=== PATIENT | male | born 1935 | race Caucasian/White ===

== ENCOUNTER 2017-01-30 07:21 | Day surgery (SDC) | payer OTHER, MEDICARE ==
[2017-01-26 11:22] VITALS: BMI 22.8
[2017-01-30] MEDS ORDERED: ACETAMINOPHEN 500 MG TABLET (FP) PO PRN (08:58)
[2017-01-30] MEDS ORDERED: BACITRACIN 3.5 GM OPTHALMIC OINT TUBE ONE (09:10)
[2017-01-30] MEDS ORDERED: TETRACAINE 0.5% OPHTH SOLN 2 ML BOTTLE ONE (09:10)
[2017-01-30] MEDS ORDERED: LIDOCAINE 1%/EPI 1:100000 (20 ML MULTI DOSE VIAL) ONE (09:11)
[2017-01-30] MEDS ORDERED: BUPIVACAINE HCL/PF 0.5% (5MG/ML) 10 ML VIAL ONE (09:11)
[2017-01-30] MEDS ORDERED: POVIDONE-IODINE 5% OPHTHALMIC PREP 30 ML SOLUTION ONE (09:11)
[2017-01-30] MEDS ORDERED: oxyCODONE HCL 5 MG TABLET PO PRN (11:05)
[2017-01-30] MEDS ORDERED: ONDANSETRON 4 MG/2 ML VIAL IVPUSH PRN (11:05)
[2017-01-30] MEDS ORDERED: LACTATED RINGERS SOLUTION 1,000 ML IV SCH (11:15)
--- NOTE | 2017-01-30 12:24 | OP ---
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 PROCEDURE: 1. Debridement. 2. Facial SLAP from the left preauricular region to the left lateral canthus and repair of defect. SURGEON: Cata Escobar MD ANESTHESIA: Local. COMPLICATIONS: None. ESTIMATED BLOOD LOSS: 5 mL. OPERATIVE REPORT: The patient is brought to the operating room and placed on the operating room table. Vital signs monitored by Anesthesia. Tetracaine was placed in both eyes. The wound was photographed. I subsequently marked for a rotational flap. Following this, 10 mL of 2% Xylocaine 1:100,000 epinephrine and 0.5% Marcaine were injected around the area of the defect and the entire left temporal, preauricular region, left lateral canthus, and cheek. Massage was applied for hemostasis and the following procedure was performed: After prepping and draping, inferior and lateral incisions were made in the cheek skin and wide undermining in the deep dermal plane was carried out to the preauricular region and in the cheek and in the lateral canthus. The elevated flap was then rotated into position over the defect after the defect had been trimmed. It was secured into position. The donor site was closed with 4-0 Prolene passed with 2 bolsters closing the superior apex of the donor site and below this the donor site was closed with 4-0 and 3-0 chromic and then with running 5-0 plain. The rotated flap was secured into the appropriate corners with buried 5-0 chromic suture tailored to fit into the defect as needed, and was meticulously closed with a deep layer of 5-0 chromic opposing the new flap on all 3 of its sides and then closing the skin layer with running and interrupted 5-0 chromic suture meticulously. Antibiotic irrigation was used throughout the case. Bacitracin ointment was placed on all the sutures at the end of the case. The patient was taken to the recovery room in stable condition. CATA ESCOBAR M.D. [id number]
[2017-01-30 12:58] VITALS: PULSE 78; TEMP 97.5
[2017-01-30 13:01] VITALS: BP 123/73
== END 2017-01-30 12:35 | disposition home or self-care (01) ==
LOC: FASU 07:21
PROVIDERS: ATTEND Ophthalmology
PROC: 0HX1XZZ Transfer Face Skin, External Approach (ICD-10-PCS; 2017-01-30)
PROC: 08SR0ZZ Reposition Left Lower Eyelid, Open Approach (ICD-10-PCS; principal; 2017-01-30 09:30)
DX: H02.9 Unspecified disorder of eyelid (principal); Z85.828 Personal history of other malignant neoplasm of skin
CPT/HCPCS: 94760